=== PATIENT | female | born 1990 | race Caucasian/White ===

== ENCOUNTER 2020-05-30 08:53 | Emergency (ER) | payer SELFPAY ==
[~2020-05-30] VITALS: Ht 165.1 cm; Wt 93.4 kg
--- NOTE | 2020-05-30 09:27 | NUR ---
assumed care of pt. pt here c/o s/o BARRETO with N/V since early this AM. pt reports that she took dramammine [employer] without relief of sx
[2020-05-30] MEDS ORDERED: KETOROLAC 30 MG/1 ML IVPush ONE (09:30)
[2020-05-30] MEDS ORDERED: DIPHENHYDRAMINE 50 MG/ML, 1ML IVPush ONE (09:30)
[2020-05-30] MEDS ORDERED: SODIUM CHLORIDE 0.9% 1,000ML IVBOLUS ONE (09:30)
[2020-05-30] MEDS ORDERED: METOCLOPRAMIDE 5 MG/ML, 2ML IVPush ONE (09:30)
--- NOTE | 2020-05-30 09:35 | NUR ---
pt is actively vomiting and restless. pt states that no one else in her home is ill. denies diarrhea. pt reports that she is feeling sensitive to light. no loss or change of vision. ELISABETH
[2020-05-30] MEDS ORDERED: DIPHENHYDRAMINE 50 MG/ML, 1ML ONE (09:41)
[2020-05-30] MEDS ORDERED: METOCLOPRAMIDE 5 MG/ML, 2ML ONE (09:42)
[2020-05-30] MEDS ORDERED: KETOROLAC 30 MG/1 ML ONE (09:42)
--- NOTE | 2020-05-30 09:50 | NUR ---
pt medicated for sx per order. pt reports that she drove here. pt advised not to drive after nausea medications. pt verbalized understanding
--- NOTE | 2020-05-30 10:30 | NUR ---
lights have been dimmed for pt comfort after medication administration pt is sleeping. no apparent distress
[2020-05-30 10:32] VITALS: BP 135/63
--- NOTE | 2020-05-30 11:26 | NUR ---
this pt was D/C by another RN
== END 2020-05-30 11:22 | disposition home or self-care (01) ==
LOC: ED 10:16
DX: G44.229 Chronic tension-type headache, not intractable (principal); R11.2 Nausea with vomiting, unspecified
CPT/HCPCS: 70450; 96361; 96374; 96375; 99284; J1200; J1885; J2765; J7030